=== PATIENT | female | born 1995 | race Caucasian/White ===

== ENCOUNTER 2016-08-13 17:32 | Emergency (ER) | payer BC ==
[~2016-08-13] VITALS: Ht 157.5 cm; Wt 78.0 kg
[2016-08-13 18:03] VITALS: BP 157/101
[2016-08-13] MEDS ORDERED: BACTRIM,SEPT1 TABLET PO (18:05)
[2016-08-13] MEDS ORDERED: PYRIDIUM200 MG PO (18:06)
== END 2016-08-13 18:29 | disposition home or self-care (01) ==
LOC: EME 17:32 → EDBD 17:32 → EME 18:29
DX: N39.0 Urinary tract infection, site not specified (principal); R31.9 Hematuria, unspecified
CPT/HCPCS: 99281; 99283